=== PATIENT | female | born 1985 | race Caucasian/White ===

== ENCOUNTER 2017-03-20 06:24 | Inpatient (IN) | payer BC ==
[~2017-03-20] VITALS: Ht 180.3 cm; Wt 95.0 kg
[2017-03-20] MEDS ORDERED: OXYTOCIN 30 UNIT in D5LR 500 ML PRN (06:30)
[2017-03-20] MEDS ORDERED: LIDOCAINE 1% (10mg/ml) 2ml SDV ID PRN (06:30)
[2017-03-20] MEDS ORDERED: MAG-AL + SIM LIQUID 30 ML UDC PO PRN ×2 (06:30→19:30)
[2017-03-20] MEDS ORDERED: ACETAMINOPHEN 500 MG TABLET PO PRN ×2 (06:30→19:30)
[2017-03-20] MEDS ORDERED: CALCIUM CARBONATE 500mg Chewable TAB PO PRN ×2 (06:30→19:30)
[2017-03-20] MEDS: LR 1,000 ML IV PRN ×2 (06:54→13:12)
[2017-03-20 07:00] VITALS: BP 105/62; PULSE 83; RESP 16; TEMP 98; O2SAT 98
[2017-03-20 07:11] LABS: HGB - HEMOGLOBIN 12.6 GM/DL (12-16); MEAN CORPUSCULAR HGB 31.7 UUG (26-34); MEAN CORPUSCULAR HGB CONC(MCHC 34.1 GM/DL (31-37); MEAN CORPUSCULAR VOLUME 93.2 UM3 (80-100); MEAN PLATELET VOLUME 10.7 UM3 (9.4-12.4); RED BLOOD COUNT 3.97 M/MM3 (4.00-5.20); WBC - WHITE BLOOD COUNT 12.7 T/MM3 (4.5-11.0)
[2017-03-20] MEDS: D5LR 1,000 ML IV PRN ×2 (07:44→15:11)
--- NOTE | 2017-03-20 08:36 | ANESOB ---
Epidural/ Date/Time DATE: 03/20/17 TIME: 08:35 Preop Diagnosis Procedure: Labor Epidural Plan: Epidural Height: 5 ' 11.00 " Weight: 95.000 kg BMI: kg/m2 Temperature: 98 Blood Pressure: 105/62 Heart Rate: 83 Respiratory Rate: 16 SaO2: 98 P:2 Medications & Allergies Inpatient Medications Current Medications Medications (Trade) Dose Ordered Sig/Андрей Start Time Stop Time Status Last Admin Dose Admin Lidocaine HCl 0.2 mg 0.2 mg PRN PRN 03/20/17 06:30 Lactated Ringer's (Lactated Ringers) 1,000 ml @ 0 mls/hr Q0M PRN 03/20/17 06:26 03/20/17 06:54 0 MLS/HR Acetaminophen (Tylenol Extra Strength) 1-2 TABS = 500-1,000 MG Q4H PRN 03/20/17 06:30 Al Hydroxide/Mg Hydroxide (Maalox) 30 ml Q4H PRN 03/20/17 06:30 Calcium Carbonate 1-2 TABS Q2H PRN 03/20/17 06:30 Dextrose/Lactated Ringer's 1,000 ml @ 0 mls/hr Q0M PRN 03/20/17 07:00 03/20/17 07:44 0 MLS/HR Oxytocin/Dextrose/ Lactated Ringer's (Pitocin/D5lr) 503 ml @ 0 mls/hr Q0M PRN 03/20/17 06:30 03/20/17 07:44 0 MLS/HR Coded Allergies: No Known Allergies (Unverified , 03/20/17) Medical/Surgical History Anesthesia PMH: Denies: *Diabetes, Anesthesia Reactions, Malignant Hyperthermia Smoking Status: Never smoker Does patient use chewing tobac: No Second Hand Exposure: No Alcohol Intake: none Anesthesia Adverse Reactions: FOUND none Family Hx of Anesthesia Advers: none Hx of Motion Sickness: No Complications During : No Pertinent Findings Laboratory Tests 03/20/17 06:50 EKG Rhythm: Sinus Rhythm Physical Exam Respiratory: Lungs clear Cardiovascular: Regular rate, rhythm Airway Assessment Mallampati Score: II TMD: 3 Fingerbreadths Neck Extension: Good Overall Assessment: May Be Diff Intubation ASA: 2 Discussion Discussed risks/options/alternatives of anesthesia. Patient consents. Nursing pain assessment noted. Present for Discussion: Present: Spouse Attestation Statement Prior to the delivery of any anesthetic medication, I examined the patient, developed the plan, obtained the patient's consent and discussed the risk and benefits of the procedure with the patient/guardian. If the note happens to be signed after anesthesia start time, it is only due to providing efficient care of the patient and documenting at a time when the computer is available. JESUS VERA GUIDE VISITOR March 20, 2017 08:36
[2017-03-20] MEDS ORDERED: ONDANSETRON 4mg/2ml INJECTION IV PRN (11:00)
[2017-03-20] MEDS ORDERED: DiphenhydrAMINE 50 MG/ML INJECTION IV PRN (11:00)
[2017-03-20] MEDS ORDERED: NALOXONE 0.4mg/ml INJECTION IV PRN (11:00)
[2017-03-20] MEDS ORDERED: ROPIVACAINE 1% 200 MG, SUFENTANIL 50 MCG in NORMAL SALINE 80 ML EPI PRN (11:00)
[2017-03-20] MEDS ORDERED: OXYTOCIN 30 UNIT in D5W 500 ML IV ONE ×4 (19:26)
[2017-03-20] MEDS ORDERED: DiphenhydrAMINE 25 MG CAPSULE PO PRN (19:30)
[2017-03-20] MEDS ORDERED: MILK OF MAGNESIA 30 ML SUSP PO PRN (19:30)
[2017-03-20] MEDS ORDERED: HYDROCORTISONE 2.5% CREAM 30 GM RECTALLY PRN (19:30)
[2017-03-20] MEDS ORDERED: PHENYLEPHRINE RECTAL SUPPOSITORY RECTALLY PRN (19:30)
[2017-03-20] MEDS: IBUPROFEN 800 MG TABLET PO SCH (19:43)
--- NOTE | 2017-03-20 20:15 | LDNF ---
DATE OF DELIVERY 03/20/2017 NARRATIVE Ms. Zayas progressed in first stage of labor to the complete and +1 presentation. She began to push with excellent effort. She pushed very hard. The baby was very slow, however, in coming down. After about an hour and a half of pushing the patient became very tired and became less effective. heart tones remained reactive and reassuring throughout this time. Descent was just simply slow. I discussed with the patient the option of using the vacuum for assistance. We discussed the possibility of breaking blood vessels on the scalp. She agreed that she needed this help. The Mityvac was applied at the complete and +3 station. On the third pull there was quite a bit of soft tissue dystocia. I cut a second-degree midline episiotomy, enabling deliver of the head. Over the course of three pushes the head was delivered in the OA presentation. We were very concerned that there would be shoulder dystocia. However, the patient was in Stephanie maneuver and the shoulders delivered with very little difficulty. The vacuum had been removed immediately after delivery of the head. The baby was then bulb suctioned after delivery in total and placed on mother's abdomen. After about 3-1/2 minutes the cord softened and was doubly clamped. It was then cut by the baby's father, Sherry. This is a liveborn male with Apgars of 8/9/9, weighing 7 pounds 15 ounces. The placenta subsequently delivered spontaneously intact. It had a normal configuration. It had marginal insertion of the cord but did not appear membranous. There were three vessels to the cord. I repaired the second-degree midline episiotomy in the usual fashion with a 2-0 Vicryl. Total blood loss was approximately 400 mL. At the time of this dictation mother and baby are doing well. [facility]ITALJose
--- NOTE | 2017-03-20 22:13 | NUR ---
Epidural Epidural catheter removed without complications, tip intact, no S/S of infection noted. Area cleansed with alcohol, betadine and covered with a bandaid. Pt. educated about S/S of infection and to call doctor with concerns.
[2017-03-20 22:23] VITALS: BP 90/56; PULSE 59; RESP 16
[2017-03-20 23:30] VITALS: BP 92/53; PULSE 71; RESP 16; TEMP 98.1
--- NOTE | 2017-03-21 02:11 | NUR ---
Chart Check 24 hour chart check completed
--- NOTE | 2017-03-21 02:13 | NUR ---
SHIFT SUMMARY: Induction with pitocin at beginning of shift. VS stable and pt's labor pain controlled with epidural. Pt had a viable male via a vaginal delivery with vacuum assist at 190. Baby placed skin to skin with pt at delivery, APGARS 8/9/9. Spontaneous delivery of placenta at 1908. VSS, pt's pain controlled with PO Motrin and ice pack to perineum. Fundus was firm at 2below umbilicus, scant to light lochia noted. Approx. 1hour after delivery fundus shift to the right, but remains 2 finger breaths below umbilicus. At 2.5 hours in recovery, fundus remains to the right and at umbilicus. IV saline locked and epidural removed. RN assist pt to BRP, no complications. Pt voided 550ml hawkins colored urine and passed a 1/2dollar sized blood clot. RN provided and discussed dianne care. Ice pack, TUCKS and Benzocaine to swollen perineum. Pt's bed linens changed. Pt now up ad alyssa to BRP and performing own cares. General diet consumed w/o complications. RN assist pt with . Bonding and caring for baby appropriately. Alec in room and supportive.
[2017-03-21] MEDS: HYDROCODONE/APAP 5 mg/325 mg TABLET PO PRN ×5 (03:26→20:35)
--- NOTE | 2017-03-21 07:09 | PNPDOC ---
Progress Note PPD1 Rubella: Immune GBS: Negative Blood Type:A neg Subjective 03/21/17 Lochia: Minimal Pain: Controlled Nausea and Vomiting: No Nausea/Vomiting Objective Vital Signs Date Time Temp Pulse Resp B/P Pulse Ox O2 Delivery O2 Flow Rate FiO2 03/20/17 23:30 98.1 71 16 92/53 Room Air 03/20/17 07:00 98 General: Alert and Oriented Abdomen: Fundus Firm, Non-tender Extremities: Non-tender Assessment SP, VAVD Plan Routine Care Expected date of discharge: March 22, 2017 RADHA CABRAL MD March 21, 2017 07:09
[2017-03-21 07:30] VITALS: BP 96/55; PULSE 65; RESP 16; TEMP 97.8; O2SAT 96
[2017-03-21] MEDS ORDERED: RHO(D) IMMUNE GLOBULIN 300mcg/2ml INJECTION IV ONE (09:30)
[2017-03-21] MEDS: DOCUSATE CALCIUM 240 MG CAPSULE PO SCH (10:19)
--- NOTE | 2017-03-21 14:30 | NUR ---
SHIFT SUMMARY VSS. FIRM FUNDUS, LIGHT LOCHIA. PAIN CONTROLLED WITH ORAL PAIN MEDS. PT PERFORMS SELF CARES. REGULAR DIET. IV LOCK D/C'D. WELL BUT WOULD LIKE TO SEE TOMORROW. BABY ROOMED IN AND MOM AND DAD PERFORMED ALL CARES.
[2017-03-21 15:20] VITALS: BP 102/56; PULSE 69; RESP 16; TEMP 98.3; O2SAT 99
[2017-03-21] MEDS: IBUPROFEN 800 MG TABLET PO SCH ×2 (16:00→20:34)
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
[2017-03-21 21:50] VITALS: BP 99/51; PULSE 64; RESP 14; TEMP 98.4
[2017-03-22] MEDS: HYDROCODONE/APAP 5 mg/325 mg TABLET PO PRN ×2 (00:42→07:01)
[2017-03-22] MEDS: IBUPROFEN 800 MG TABLET PO SCH (05:53)
[2017-03-22 05:58] VITALS: BP 107/68; PULSE 64; RESP 18; TEMP 97.7; O2SAT 98
[2017-03-22] MEDS ORDERED: DOCU240C40 PO (07:51)
[2017-03-22] MEDS ORDERED: IBUP-1547 PO (07:51)
[2017-03-22] MEDS ORDERED: HYDR-4246 PO (07:51)
[2017-03-22] MEDS: DOCUSATE CALCIUM 240 MG CAPSULE PO SCH (11:24)
[2017-03-22 13:58] VITALS: BP 106/67; PULSE 68; RESP 18; TEMP 98; O2SAT 100
== END 2017-03-22 14:50 | disposition home or self-care (01) | DRG 775 ==
LOC: MC 06:24
PROVIDERS: ADMIT Obstetrics & Gynecology; ATTEND Obstetrics & Gynecology
PROC: 10D07Z6 Extraction of Products of Conception, Vacuum, Via Natural or Artificial Opening (ICD-10-PCS; principal; 2017-03-20)
PROC: 0W8NXZZ Division of Female Perineum, External Approach (ICD-10-PCS; 2017-03-20)
PROC: 3E033VJ Introduction of Other Hormone into Peripheral Vein, Percutaneous Approach (ICD-10-PCS; 2017-03-20)
PROC: 10907ZC Drainage of Amniotic Fluid, Therapeutic from Products of Conception, Via Natural or Artificial Opening (ICD-10-PCS; 2017-03-20)
DX: O75.81 Maternal exhaustion complicating labor and delivery (principal); O69.89X0 Labor and delivery complicated by other cord complications, not applicable or unspecified; O09.33 Supervision of pregnancy with insufficient antenatal care, third trimester; O99.344 Other mental disorders complicating childbirth; F41.8 Other specified anxiety disorders; Z3A.39 39 weeks gestation of pregnancy; Z37.0 Single live birth
CPT/HCPCS: 36415; 85027; 85460; 86850; 86870; 86900; 86901